=== PATIENT | female | born 1995 | race Two or more races ===

== ENCOUNTER → 2023-03-24 | Outpatient (CLI) | payer OTHER ==
[2023-03-24 11:36] LABS: Basophils # (auto) 0.1 10 ^3/uL (0-0.2); Basophils % (auto) 0.9 % (0.0-2.0); Eosinophils # (auto) 0.1 10 ^3/uL (0-0.8); Hematocrit 41.4 % (36.0-46.0); Hemoglobin 14.3 g/dL (12.2-16.2); Lymphocytes # (auto) 2.1 10 ^3/uL (0.4-5.4); Lymphocytes % (auto) 21.4 % (10.0-50.0); Mean Corpuscular Hemoglobin 29.3 pg (28.0-32.0); Mean Corpuscular Hgb Conc. 34.6 g/dL (32.0-36.0); Mean Corpuscular Volume 84.7 fL (80.0-100.0); Monocytes # (auto) 0.8 10 ^3/uL (0-1.3); Monocytes % (auto) 7.9 % (0.0-12.0); Neutrophils # (auto) 6.8 10 ^3/uL (1.6-8.6); Neutrophils % (auto) 68.8 % (37.0-80.0); Red Blood Cells 4.89 10^6/uL (4.0-5.20); Red Cell Distribution Width 13.6 % (11.8-14.3); White Blood Cell 9.9 10^3/uL (4.4-10.8)
[2023-03-24 14:09] LABS: Alcohol, Urine < 3.0 mg/dL (0-10); Amphetamine Screen, Urine NEGATIVE (NEGATIVE); Barbiturate Scree,Urine NEGATIVE (NEGATIVE); Benzodiazephine Screen, Urine NEGATIVE (NEGATIVE); Cannabinoid Screen, Urine NEGATIVE (NEGATIVE); Cocaine Screen, Urine NEGATIVE (NEGATIVE); Opiate Scree,Urine NEGATIVE (NEGATIVE); Phencyclidine Screen, Urine NEGATIVE (NEGATIVE)
[2023-03-25 08:07] LABS: RPR Non Reactive (Non Reactive)
== END | disposition home or self-care (01) ==
LOC: LAB 10:58
PROVIDERS: ATTEND Obstetrics & Gynecology
DX: Z31.430 Encounter of female for testing for genetic disease carrier status for procreative management (principal); N39.0 Urinary tract infection, site not specified
CPT/HCPCS: 36415; 80307; 83036; 84112; 84144; 84702; 85025; 86592; 86701; 86762; 86850; 86900; 86901; 87086; 87340

== ENCOUNTER 2023-08-07 22:51 | Emergency (ER) | payer OTHER ==
[~2023-08-07] VITALS: Ht 167.6 cm; Wt 74.0 kg
[2023-08-07 22:54] VITALS: BP 113/67; RESP 16; O2SAT 100
[2023-08-07 23:04] VITALS: PULSE 71
[2023-08-07 23:11] LABS: Basophils # (auto) 0.1 10 ^3/uL (0-0.2); Basophils % (auto) 0.5 % (0.0-2.0); Eosinophils # (auto) 0.3 10 ^3/uL (0-0.8); Eosinophils % (auto) 1.5 % (0.0-7.0); Hematocrit 38.8 % (36.0-46.0); Hemoglobin 13.1 g/dL (12.2-16.2); Lymphocytes # (auto) 4.1 10 ^3/uL (0.4-5.4); Lymphocytes % (auto) 24.6 % (10.0-50.0); Mean Corpuscular Hgb Conc. 33.6 g/dL (32.0-36.0); Mean Corpuscular Volume 89.3 fL (80.0-100.0); Monocytes # (auto) 1.2 10 ^3/uL (0-1.3); Monocytes % (auto) 7.4 % (0.0-12.0); Neutrophils # (auto) 10.9 10 ^3/uL (1.6-8.6); Red Blood Cells 4.35 10^6/uL (4.0-5.20); Red Cell Distribution Width 14.1 % (11.8-14.3); White Blood Cell 16.5 10^3/uL (4.4-10.8)
[2023-08-07 23:26] LABS: Alanine Aminotransferase 54 U/L (7-40); Albumin 4.4 g/dL (3.2-4.8); Alkaline Phosphatase 84 U/L (46-116); Anion Gap 6 (5-15); Aspartate Aminotransferase 48 U/L (13-40); Calcium 9.3 mg/dL (8.7-10.4); Carbon Dioxide 28 mmol/L (20-30); Chloride 103 mmol/L (98-107); Glucose 101 mg/dL (74-106); INR 0.96 (0.9-1.15); Magnesium 1.7 mg/dL (1.6-2.6); Partial Thromboplastin Time 25.9 SEC (24.5-34.5); Potassium 3.5 mmol/L (3.5-5.1); Prothrombin Time 10.1 sec (9.3-11.8); Sodium 137 mmol/L (136-145)
[2023-08-07 23:27] LABS: Bilirubin, Total 0.5 mg/dL (0.2-1.0); Total Protein 6.9 g/dL (5.7-8.2)
[2023-08-07 23:29] LABS: Urine Bacteria MANY /hpf (None Seen); Urine Blood Negative /uL (Negative); Urine Clarity Clear (Clear); Urine Color Yellow (Yellow); Urine Protein, UAD Negative (Negative); Urine Specific Gravity 1.016 (1.001-1.035); Urine Urobilinogen Normal (Negative); Urine WBC 6 /hpf (0 - 5); Urine pH 6.5 (5.0-8.0)
[2023-08-07 23:29] LABS: BUN/Creatinine Ratio 8.9 (10.0-20.0); Blood Urea Nitrogen < 5 mg/dL (9-23)
== END 2023-08-08 22:51 | disposition left against medical advice (07) ==
LOC: ER 22:51
DX: O26.891 Other specified pregnancy related conditions, first trimester (principal); R07.89 Other chest pain; Z53.21 Procedure and treatment not carried out due to patient leaving prior to being seen by health care provider; Z3A.01 Less than 8 weeks gestation of pregnancy
CPT/HCPCS: 36415; 80053; 81001; 83735; 84484; 85025; 85610; 85730; 93005

== ENCOUNTER → 2023-08-26 | Outpatient (CLI) | payer OTHER ==
[2023-08-26 09:12] LABS: Basophils # (auto) 0.1 10 ^3/uL (0-0.2); Basophils % (auto) 0.5 % (0.0-2.0); Eosinophils # (auto) 0.1 10 ^3/uL (0-0.8); Eosinophils % (auto) 1.1 % (0.0-7.0); Hematocrit 38.6 % (36.0-46.0); Hemoglobin 12.8 g/dL (12.2-16.2); Lymphocytes # (auto) 1.8 10 ^3/uL (0.4-5.4); Lymphocytes % (auto) 14.2 % (10.0-50.0); Mean Corpuscular Hemoglobin 29.7 pg (28.0-32.0); Mean Corpuscular Hgb Conc. 33.3 g/dL (32.0-36.0); Mean Corpuscular Volume 89.1 fL (80.0-100.0); Monocytes % (auto) 7.5 % (0.0-12.0); Neutrophils # (auto) 9.9 10 ^3/uL (1.6-8.6); Neutrophils % (auto) 76.7 % (37.0-80.0); Red Blood Cells 4.33 10^6/uL (4.0-5.20); Red Cell Distribution Width 13.6 % (11.8-14.3); White Blood Cell 12.9 10^3/uL (4.4-10.8)
== END | disposition home or self-care (01) ==
LOC: LAB 08:38
PROVIDERS: ATTEND Obstetrics & Gynecology
DX: O99.810 Abnormal glucose complicating pregnancy (principal); Z3A.01 Less than 8 weeks gestation of pregnancy
CPT/HCPCS: 36415; 82951; 83036; 85025

== ENCOUNTER 2023-11-04 15:10 | Observation (INO) | payer OTHER | END 2023-11-04 16:38 | disposition home or self-care (01) | LOC: UNDOADMOB 15:10 → LDRP 15:10 → UNDODISOB 16:38 | PROVIDERS: ADMIT Obstetrics & Gynecology; ATTEND Obstetrics & Gynecology | DX: O69.81X0 Labor and delivery complicated by cord around neck, without compression, not applicable or unspecified (principal); Z88.0 Allergy status to penicillin; Z3A.38 38 weeks gestation of pregnancy | CPT/HCPCS: 59025; 76818; 81002; 94760; G0378 ==

== ENCOUNTER 2023-11-11 16:05 | Observation (INO) | payer OTHER | END 2023-11-11 19:55 | disposition home or self-care (01) | LOC: LDRP 16:05 → UNDOADMOB 16:05 → LDRP 16:29 → UNDODISOB 19:55 | PROVIDERS: ADMIT Obstetrics & Gynecology; ATTEND Obstetrics & Gynecology | DX: O69.81X0 Labor and delivery complicated by cord around neck, without compression, not applicable or unspecified (principal); Z3A.39 39 weeks gestation of pregnancy; Z88.0 Allergy status to penicillin | CPT/HCPCS: 59025; 76818; 81002; 94760; G0378 ==

== ENCOUNTER 2023-11-15 09:52 | Observation (INO) | payer OTHER ==
[2023-11-15] MEDS ORDERED: PREN-96 PO (10:03)
== END 2023-11-15 11:04 ==
LOC: LDRP 09:52
PROVIDERS: ADMIT Obstetrics & Gynecology; ATTEND Obstetrics & Gynecology
DX: O69.81X0 Labor and delivery complicated by cord around neck, without compression, not applicable or unspecified (principal); O48.0 Post-term pregnancy; Z3A.40 40 weeks gestation of pregnancy
CPT/HCPCS: 59025; 76818; 81002; 94760; G0378

== ENCOUNTER 2023-11-17 10:56 | Observation (INO) | payer OTHER ==
[~2023-11-17 10:56] MED LIST: PREN-96 PO
== END 2023-11-17 15:48 | disposition home or self-care (01) ==
LOC: LDRP 13:53 → UNDOADMOB 13:53 → LDRP 14:04
PROVIDERS: ADMIT Obstetrics & Gynecology; ATTEND Obstetrics & Gynecology
DX: O48.0 Post-term pregnancy (principal); Z3A.40 40 weeks gestation of pregnancy; Z88.0 Allergy status to penicillin
CPT/HCPCS: 59025; 76818; 81002; 94760; G0378

== ENCOUNTER 2023-11-19 11:55 | Observation (INO) | payer OTHER | END 2023-11-19 14:18 | disposition home or self-care (01) | LOC: LDRP 11:55 → UNDOADMOB 11:55 → LDRP 12:03 → UNDODISOB 14:18 | PROVIDERS: ADMIT Obstetrics & Gynecology; ATTEND Obstetrics & Gynecology | DX: O48.0 Post-term pregnancy (principal); Z88.0 Allergy status to penicillin; Z3A.40 40 weeks gestation of pregnancy | CPT/HCPCS: 76818; G0378; 59025; 81002; 94760 ==

== ENCOUNTER 2023-11-20 18:58 | Inpatient (IN) | payer OTHER ==
[~2023-11-20] VITALS: Ht 167.6 cm; Wt 86.2 kg
[2023-11-20] MEDS ORDERED: PROMETHAZINE HCL 25 MG/ML 1ML IV PRN (19:15)
[2023-11-20] MEDS ORDERED: BUTORPHANOL TARTRATE 2 MG/1 ML VIAL IV PRN ×2 (19:15)
[2023-11-20] MEDS ORDERED: LIDOCAINE 2%HCL (LOCAL ANESTH.) INJ 20ML MDV IJ PRN (19:15)
[2023-11-20 19:40] LABS: Urine Bacteria FEW /hpf (None Seen); Urine Blood Negative /uL (Negative); Urine Clarity Clear (Clear); Urine Color Yellow (Yellow); Urine Mucus FEW (None Seen); Urine Protein, UAD Negative (Negative); Urine Specific Gravity 1.015 (1.001-1.035); Urine Urobilinogen Normal (Negative); Urine WBC 1 /hpf (0 - 5)
[2023-11-20 19:43] LABS: Basophils # (auto) 0.1 10 ^3/uL (0-0.2); Basophils % (auto) 0.4 % (0.0-2.0); Eosinophils # (auto) 0.1 10 ^3/uL (0-0.8); Eosinophils % (auto) 0.9 % (0.0-7.0); Hematocrit 38.4 % (36.0-46.0); Hemoglobin 13.1 g/dL (12.2-16.2); Lymphocytes # (auto) 2.6 10 ^3/uL (0.4-5.4); Lymphocytes % (auto) 15.9 % (10.0-50.0); Mean Corpuscular Hemoglobin 29.9 pg (28.0-32.0); Mean Corpuscular Volume 87.7 fL (80.0-100.0); Monocytes # (auto) 1.3 10 ^3/uL (0-1.3); Neutrophils # (auto) 12.1 10 ^3/uL (1.6-8.6); Neutrophils % (auto) 74.8 % (37.0-80.0); Nucleated Red Blood Cells % 0.2 %; Red Blood Cells 4.37 10^6/uL (4.0-5.20); Red Cell Distribution Width 13.9 % (11.8-14.3); White Blood Cell 16.2 10^3/uL (4.4-10.8)
[2023-11-20 19:55] LABS: Amphetamine Screen, Urine Neg (NEGATIVE); Benzodiazephine Screen, Urine Neg (NEGATIVE)
[2023-11-20 19:56] LABS: Barbiturate Scree,Urine Neg (NEGATIVE); Cannabinoid Screen, Urine Neg (NEGATIVE); Cocaine Screen, Urine Neg (NEGATIVE); Opiate Scree,Urine Neg (NEGATIVE); Phencyclidine Screen, Urine Neg (NEGATIVE)
[2023-11-20 19:56] LABS: Alanine Aminotransferase 18 U/L (7-40); Alkaline Phosphatase 182 U/L (46-116); Calcium 9.5 mg/dL (8.5-10.1)
[2023-11-20 19:57] LABS: Albumin 4.1 g/dL (3.2-4.8); Anion Gap 10 (5-15); Aspartate Aminotransferase 19 U/L (13-40); Bilirubin, Total 0.5 mg/dL (0.2-1.0); Carbon Dioxide 22 mmol/L (20-30); Chloride 105 mmol/L (98-107); Glucose 88 mg/dL (74-106); Sodium 137 mmol/L (136-145); Total Protein 6.3 g/dL (5.7-8.2)
[2023-11-20 20:02] LABS: BUN/Creatinine Ratio 9.4 (10.0-20.0); Blood Urea Nitrogen < 5 mg/dL (9-23)
[2023-11-20 20:13] LABS: INR 0.92 (0.9-1.15); Partial Thromboplastin Time 25.9 SEC (24.5-34.5); Prothrombin Time 9.7 sec (9.3-11.8)
[2023-11-20] MEDS: LACTATED RINGER'S 1,000 ML IV SCH (20:18)
[2023-11-20] MEDS: PHISODERM TOP SOLN 240ML BTL TOP PRN (20:19)
[2023-11-20] MEDS: WITCH HAZEL-GLYCERIN PAD TOP PRN (20:19)
[2023-11-20] MEDS: miSOPROStol 50 MCG per PRE-CUT 1/2 TAB PO PRN (20:19)
[2023-11-20] MEDS: DERMOPLAST 60ML BOTTLE TOP PRN (20:19)
[2023-11-21] MEDS ORDERED: TERBUTALINE SULFATE 1 MG/ML 1ML VIAL SC PRN (09:15)
[2023-11-21] MEDS: LACT. RINGERS/OXYTOCIN 20UNITS 1,000 ML IV SCH ×2 (09:45→19:05)
[2023-11-21] MEDS ORDERED: ROPIVACAINE HCL 200 ML ONE (11:30)
[2023-11-21] MEDS: LACTATED RINGER'S 1,000 ML IV ONE (16:46)
[2023-11-21] MEDS ORDERED: ONDANSETRON ODT 4 MG TAB PO PRN (18:45)
[2023-11-21] MEDS ORDERED: ONDANSETRON HCL 4 MG/2 ML VIAL IV PRN (18:45)
[2023-11-21] MEDS ORDERED: ACETAMINOPHEN 325 MG TAB PO PRN (18:45)
[2023-11-21] MEDS: LACT. RINGERS/OXYTOCIN 20UNITS 500 ML IV ONE ×3 (19:02→20:22)
[2023-11-21 20:50] VITALS: BP 111/62; PULSE 87; RESP 18; TEMP 98.5; O2SAT 97
[2023-11-21] MEDS ORDERED: DOCUSATE SOD 100 MG CAP PO SCH (22:00)
[2023-11-21] MEDS: DOCUSATE SOD 100 MG CAP PO SCH (22:00)
[2023-11-21 23:00] VITALS: BP 118/71; PULSE 70; RESP 18; TEMP 98.6; O2SAT 98
[2023-11-22] MEDS ORDERED: IBUPROFEN 800 MG TAB PO SCH
[2023-11-22] MEDS: IBUPROFEN 800 MG TAB PO SCH (00:42)
[2023-11-22] MEDS: ACETAMINOPHEN 325 MG TAB PO PRN (02:03)
[2023-11-22 03:00] VITALS: BP 100/72; PULSE 68; RESP 16; TEMP 98.4; O2SAT 98
[2023-11-22] MEDS: NALOXONE HCL 0.4 MG/ML VIAL IV ONE (06:30)
[2023-11-22] MEDS: ROPIVACAINE HCL 200 ML EPI ONE (06:30)
[2023-11-22] MEDS: ePHEDrine SULFATE 50 MG/ML AMP IV ONE (06:30)
[2023-11-22 06:57] LABS: Basophils # (auto) 0.1 10 ^3/uL (0-0.2); Basophils % (auto) 0.3 % (0.0-2.0); Eosinophils # (auto) 0.1 10 ^3/uL (0-0.8); Eosinophils % (auto) 0.3 % (0.0-7.0); Hematocrit 34.8 % (36.0-46.0); Hemoglobin 11.6 g/dL (12.2-16.2); Lymphocytes # (auto) 2.5 10 ^3/uL (0.4-5.4); Lymphocytes % (auto) 11.9 % (10.0-50.0); Mean Corpuscular Hemoglobin 29.7 pg (28.0-32.0); Mean Corpuscular Hgb Conc. 33.3 g/dL (32.0-36.0); Mean Corpuscular Volume 89.1 fL (80.0-100.0); Monocytes # (auto) 1.9 10 ^3/uL (0-1.3); Monocytes % (auto) 9.3 % (0.0-12.0); Neutrophils # (auto) 16.2 10 ^3/uL (1.6-8.6); Neutrophils % (auto) 78.2 % (37.0-80.0); Red Blood Cells 3.91 10^6/uL (4.0-5.20); White Blood Cell 20.8 10^3/uL (4.4-10.8)
[2023-11-22 07:00] VITALS: BP 119/70; PULSE 63; RESP 18; TEMP 98.4; O2SAT 100
[2023-11-22 08:06] LABS: RPR Non Reactive (Non Reactive)
[2023-11-22] MEDS: IBUPROFEN 800 MG TAB PO PRN (08:23)
[2023-11-22 09:12] LABS: Platelet Estimate Adequate; RBC Morphology Normal
[2023-11-22 11:00] VITALS: BP 114/74; PULSE 86; RESP 18; TEMP 98.4; O2SAT 100
[2023-11-22 15:00] VITALS: BP 119/76; PULSE 89; RESP 16; TEMP 98; O2SAT 99
[2023-11-22 18:48] VITALS: BP 120/75; PULSE 81; RESP 18; TEMP 98.4; O2SAT 99
[2023-11-24 19:06] LABS: Treponema pallidum Ab (FTA-Ab) Non Reactive (Non Reactive)
== END 2023-11-22 19:00 | disposition home or self-care (01) | DRG 807 ==
LOC: LDRP 18:58
PROVIDERS: ADMIT Obstetrics & Gynecology; ATTEND Obstetrics & Gynecology
PROC: 10E0XZZ Delivery of Products of Conception, External Approach (ICD-10-PCS; principal; 2023-11-21)
PROC: 0KQM0ZZ Repair Perineum Muscle, Open Approach (ICD-10-PCS; 2023-11-21)
PROC: 3E0R3BZ Introduction of Anesthetic Agent into Spinal Canal, Percutaneous Approach (ICD-10-PCS; 2023-11-21)
PROC: 00HU33Z Insertion of Infusion Device into Spinal Canal, Percutaneous Approach (ICD-10-PCS; 2023-11-21)
DX: O48.0 Post-term pregnancy (principal); Z37.0 Single live birth; O70.1 Second degree perineal laceration during delivery; Z3A.40 40 weeks gestation of pregnancy
CPT/HCPCS: 36415; 59025; 59409; 62282; 80053; 80307; 81001; 81002; 85025; 85610; 85730; 86592; 86850; 86900; 86901; 94760; 94762; 96360; 96361; 96365; 96366; G0378; J2590